=== PATIENT | female | born 1985 | race African-American/Black ===

== ENCOUNTER 2020-03-12 13:55 | Emergency (ER) | payer BC ==
[~2020-03-12] VITALS: Ht 149.9 cm; Wt 111.6 kg
[2020-03-12 14:06] VITALS: BP_SYST 165
[2020-03-12 15:07] LABS: BASOPHILS # (AUTO) 0.1 K/uL (0.0-0.2); BASOPHILS % (AUTO) 1.7 % (0.0-2.0); EOSINOPHILS # (AUTO) 0.2 K/uL (0.0-0.4); EOSINOPHILS % (AUTO) 1.9 % (0.0-4.0); HEMATOCRIT 40.2 % (36-48); HEMOGLOBIN 13.4 g/dL (12.0-16.0); LYMPHOCYTES # (AUTO) 2.8 K/uL (1.0-5.5); LYMPHOCYTES % (AUTO) 33.4 % (20.5-51.5); MEAN CORPUSCULAR HEMOGLOBIN 28 pg (27-31); MEAN CORPUSCULAR HGB CONC 33 % (32-36); MEAN CORPUSCULAR VOLUME 83 fL (79.0-98.0); MONOCYTES # (AUTO) 0.9 K/uL (0.0-1.0); NEUTROPHILS # (AUTO) 4.3 K/uL (1.8-7.7); PLATELET COUNT (AUTO) 222 K/uL (130-430); RED BLOOD CELL COUNT(AUTO) 4.84 MIL/uL (4.2-6.2); RED CELL DISTRIBUTION WIDTH 14.1 % (9.0-15.0); WHITE BLOOD COUNT (AUTO) 8.2 K/uL (4.8-10.8)
[2020-03-12 15:09] LABS: CREATININE 0.8 mg/dL (0.55-1.30); POTASSIUM 3.8 mmol/L (3.5-5.1)
[2020-03-12 15:19] LABS: ALBUMIN 3.7 g/dL (3.4-4.8); TOTAL BILIRUBIN 0.2 mg/dL (0.0-1.0)
[2020-03-12 17:00] VITALS: BP_SYST 122
== END 2020-03-12 17:22 | disposition home or self-care (01) ==
LOC: SED 13:55
DX: M94.0 Chondrocostal junction syndrome [Tietze] (principal); I10 Essential (primary) hypertension; Z86.718 Personal history of other venous thrombosis and embolism
CPT/HCPCS: 36415; 71045; 80053; 84484; 85025; 85379; 93005; 99285

== ENCOUNTER 2020-06-12 21:22 | Emergency (ER) | payer BC, SELFPAY ==
[~2020-06-12] VITALS: Ht 149.9 cm; Wt 103.0 kg
[2020-06-12 21:45] VITALS: BP_SYST 155
[2020-06-12] MEDS ORDERED: IOHEXOL 350 mgI/mL, 150 ML INFUS..BTL IV ONE (22:08)
[2020-06-12 23:06] LABS: BASOPHILS # (AUTO) 0.1 K/uL (0.0-0.2); BASOPHILS % (AUTO) 0.8 % (0.0-2.0); EOSINOPHILS # (AUTO) 0.2 K/uL (0.0-0.4); EOSINOPHILS % (AUTO) 1.2 % (0.0-4.0); HEMATOCRIT 40.5 % (36-48); HEMOGLOBIN 13.3 g/dL (12.0-16.0); LYMPHOCYTES # (AUTO) 2.8 K/uL (1.0-5.5); LYMPHOCYTES % (AUTO) 20.7 % (20.5-51.5); MEAN CORPUSCULAR HEMOGLOBIN 27 pg (27-31); MEAN CORPUSCULAR HGB CONC 33 % (32-36); MEAN CORPUSCULAR VOLUME 82 fL (79.0-98.0); MONOCYTES % (AUTO) 7.5 % (1.7-9.3); NEUTROPHILS # (AUTO) 9.3 K/uL (1.8-7.7); NEUTROPHILS % (AUTO) 69.8 % (40.0-70.0); PLATELET COUNT (AUTO) 271 K/uL (130-430); RED BLOOD CELL COUNT(AUTO) 4.92 MIL/uL (4.2-6.2); RED CELL DISTRIBUTION WIDTH 13.7 % (9.0-15.0); WHITE BLOOD COUNT (AUTO) 13.3 K/uL (4.8-10.8)
[2020-06-12 23:18] LABS: CALCIUM 9.1 mg/dL (8.4-11.0); CREATININE 0.84 mg/dL (0.55-1.30); POTASSIUM 3.1 mmol/L (3.5-5.1)
[2020-06-12 23:23] LABS: PROTHROMBIN TIME 9.8 SECS (9.5-12.5)
[2020-06-12 23:37] LABS: ALBUMIN 3.7 g/dL (3.4-4.8); TOTAL BILIRUBIN 0.1 mg/dL (0.0-1.0)
[2020-06-13 00:23] VITALS: BP_SYST 155
== END 2020-06-13 00:22 | disposition home or self-care (01) ==
LOC: SED 21:22
DX: K21.9 Gastro-esophageal reflux disease without esophagitis (principal); R07.89 Other chest pain; I10 Essential (primary) hypertension; Z20.822 Contact with and (suspected) exposure to COVID-19
CPT/HCPCS: 36415; 36600; 71045; 80053; 82803; 83880; 84484; 85025; 85379; 85610; 85730; 87426; 93005; 99285; Q9967

== ENCOUNTER 2021-01-03 00:37 | Emergency (ER) | payer BC, SELFPAY ==
[~2021-01-03] VITALS: Ht 149.9 cm; Wt 100.7 kg
[2021-01-03 00:42] VITALS: BP_SYST 139
--- NOTE | 2021-01-03 00:42 | NUR ---
Patient to [facility] for evaluation.
--- NOTE | 2021-01-03 01:10 | NUR ---
PATIENT COMPLAINING OF RIGHT SHOULDER PAIN NON TRAUMATIC SHARP, RADIATING TO THE NECK X 2 DAYS. PAIN 9/10. NO REDNESS OR SWELLING NOTED.
--- NOTE | 2021-01-03 01:16 | NUR ---
ER Dr.D' Goldman at bedside examining patient.
[2021-01-03] MEDS: CYCLOBENZAPRINE HCL 10 MG TABLET (FLEXERIL) PO ONE (01:32)
[2021-01-03] MEDS: IBUPROFEN 600 MG TABLET PO ONE (01:33)
[2021-01-03] MEDS ORDERED: NAPR-688 PO (01:39)
[2021-01-03] MEDS ORDERED: ACET12.55 PO (01:39)
[2021-01-03] MEDS ORDERED: CYCL-10 PO (01:39)
--- NOTE | 2021-01-03 01:42 | NUR ---
ARM SLING APPLIED TO RIGHT SHOULDER. PATIENT TOLERATED WELL
--- NOTE | 2021-01-03 01:51 | NUR ---
Patient given written and verbal discharge instructions and verbalizes understanding. ER MD discussed with patient the results and treatment provided. Patient in stable condition. ID arm band removed. Rx of TYLENOL WITH CODEINE, FLEXERIL, NAPROXEN given. Patient educated on pain management and to follow up with PMD. Pain Scale 0/10 Opportunity for questions provided and answered. Medication side effect fact sheet provided.
== END 2021-01-03 01:51 | disposition home or self-care (01) ==
LOC: SED 00:37
DX: G54.2 Cervical root disorders, not elsewhere classified (principal); G58.8 Other specified mononeuropathies; I10 Essential (primary) hypertension; Z79.899 Other long term (current) drug therapy
CPT/HCPCS: 99283

== ENCOUNTER 2021-04-05 12:44 | Emergency (ER) | payer BC, SELFPAY ==
[~2021-04-05] VITALS: Ht 149.9 cm; Wt 93.4 kg
[~2021-04-05 12:44] MED LIST: ACET12.55 PO; CYCL10TA24 PO; NAPR-688 PO
[2021-04-05 12:45] VITALS: BP_SYST 158
[2021-04-05] MEDS ORDERED: ASPIRIN 325 MG TABLET PO ONE (15:15)
[2021-04-05] MEDS ORDERED: FAMOTIDINE 20 MG TABLET PO ONE (15:15)
[2021-04-05] MEDS ORDERED: fentaNYL CITRATE/PF 100 MCG/2 ML AMP IM ONE (15:15)
[2021-04-05 15:27] LABS: BASOPHILS # (AUTO) 0.1 K/uL (0.0-0.2); BASOPHILS % (AUTO) 1.1 % (0.0-2.0); EOSINOPHILS # (AUTO) 0.2 K/uL (0.0-0.4); EOSINOPHILS % (AUTO) 1.9 % (0.0-4.0); HEMOGLOBIN 13.2 g/dL (12.0-16.0); LYMPHOCYTES # (AUTO) 2.6 K/uL (1.0-5.5); LYMPHOCYTES % (AUTO) 28.2 % (20.5-51.5); MEAN CORPUSCULAR HEMOGLOBIN 28 pg (27-31); MEAN CORPUSCULAR HGB CONC 34 % (32-36); MEAN CORPUSCULAR VOLUME 82 fL (79.0-98.0); MONOCYTES # (AUTO) 0.8 K/uL (0.0-1.0); MONOCYTES % (AUTO) 9.2 % (1.7-9.3); NEUTROPHILS # (AUTO) 5.5 K/uL (1.8-7.7); NEUTROPHILS % (AUTO) 59.6 % (40.0-70.0); PLATELET COUNT (AUTO) 265 K/uL (130-430); RED BLOOD CELL COUNT(AUTO) 4.74 MIL/uL (4.2-6.2); WHITE BLOOD COUNT (AUTO) 9.2 K/uL (4.8-10.8)
[2021-04-05 16:17] LABS: CALCIUM 9.4 mg/dL (8.4-11.0); CREATININE 0.89 mg/dL (0.55-1.30); POTASSIUM 4.1 mmol/L (3.5-5.1)
[2021-04-05 16:30] LABS: ALBUMIN 3.7 g/dL (3.4-4.8); TOTAL BILIRUBIN 0.2 mg/dL (0.0-1.0)
[2021-04-05 20:19] VITALS: BP_SYST 117
== END 2021-04-05 20:18 | disposition home or self-care (01) ==
LOC: SED 12:44
DX: R07.89 Other chest pain (principal); I10 Essential (primary) hypertension; Z79.899 Other long term (current) drug therapy
CPT/HCPCS: 36415; 71045; 80053; 83880; 84484; 84702; 85025; 85379; 93005; 93971; 96372; 99285; J3010